=== PATIENT | female | born 1995 | race Caucasian/White ===

== ENCOUNTER → 2016-09-04 | Outpatient (REF) | payer OTHER | LOC: M SFHCLERA 15:49 | PROVIDERS: ATTEND Nurse Practitioner Family | DX: J02.9 Acute pharyngitis, unspecified (principal) ==

== ENCOUNTER → 2017-01-22 | Day surgery (SDC) | payer OTHER ==
[~2017-01-22] VITALS: Ht 152.4 cm; Wt 69.4 kg
[~2017-01-22] MED LIST: BUPIVACAINE HCL 0.25% 30 ML VIAL As Ordered ONE; DRIS50002 PO; FIORCAP3 PO; GLYCOPYRROLATE INJ 0.2 MG/ML 2 ML VIAL As Ordered ONE; HYDROmorphone HCL 1 MG/ML SYRINGE (J1170) IV PRN; KETOROLAC 30 MG/ML VIAL (J1885) IV PRN; KETOROLAC 60 MG/2 ML VIAL (J1885) As Ordered ONE; LIDOCAINE 2% INJ 100 MG/5 ML SDV (FOR ANES.) As Ordered ONE; LR 1,000 ML IV SCH; METHYLENE BLUE 0.5% (5MG/ML) 10 ML AMP (PROVAYBLUE)(Q9968 PER 1MG) As Ordered ONE; METOCLOPRAMIDE INJ 10MG/2ML VIAL (J2765) As Ordered ONE; METOCLOPRAMIDE INJ 10MG/2ML VIAL (J2765) IV PRN; MIDAZOLAM INJ 2 MG/2 ML VIAL (J2250) As Ordered ONE; NEOSTIGMINE 1MG/ML 5 ML SYRINGE (J2710) As Ordered ONE; NEXP1IMP ID; ONDANSETRON 4MG/2ML VIAL (J2405) As Ordered ONE; ONDANSETRON 4MG/2ML VIAL (J2405) IV PRN; PERCOCET 5MG/325MG TAB PO PRN; PROMETHAZINE INJ 25 MG/ML VIAL (J2550) IV PRN; PROPOFOL 200 MG/20 ML VIAL As Ordered ONE; ROCURONIUM BROMIDE 50 MG/5 ML VIAL As Ordered ONE; dexameTHASONE 4 MG/ML 1ML VIAL (J1100) As Ordered ONE; fentaNYL 100 MCG/2 ML INJECTION (J3010) As Ordered ONE; fentaNYL 250 MCG/5 ML INJECTION (J3010) As Ordered ONE
[2017-01-22 11:34] LABS: BASO % 0.2 % (0.0-1.0); EOS # 0.2 K/mm3 (0.0-0.50); EOS % 2.6 % (0.0-3.0); LARGE UNSTAINED CELL # 0.1 K/mm3 (0.0-0.4); LARGE UNSTAINED CELL % 0.7 % (0.0-4.0); LYMPH # 1.5 K/mm3 (1.5-6.5); MEAN CORPUSCULAR HEMOGLOBIN 26.6 pg (27.0-33.0); MEAN CORPUSCULAR HGB CONC 32.4 g/dl (32.0-36.5); MONO # 0.2 K/mm3 (0.0-0.8); MONO % 2.8 % (0.0-5.0); NEUTROPHILS # 6.2 K/mm3 (1.8-7.7); NEUTROPHILS % 75.6 % (36.0-66.0); PLATELET COUNT, AUTOMATED 232 k/mm3 (150-450); RED CELL DISTRIBUTION WIDTH 14.3 % (11.5-14.5); WHITE BLOOD COUNT 8.3 K/mm3 (4.0-10.0)
[2017-01-22 11:49] LABS: CONTROL LINE HCG INT CTR LINE PRESENT
[2017-01-22] MEDS: fentaNYL 100 MCG/2 ML INJECTION (J3010) IV PRN ×4 (14:41→14:56)
[2017-01-22 20:30] VITALS: BP 126/59
--- NOTE | 2017-01-23 09:47 | RO ---
DATE OF PROCEDURE: 01/22/2017 PREPROCEDURE DIAGNOSIS: POSTPROCEDURE DIAGNOSIS: SURGEON: Song Mcnamara MD COMMUNICATION ENGINEER: ANESTHESIA: INDICATION FOR SURGERY: The patient is a 21-year-old, 2, para 2 with desire for Nexplanon removal from left upper extremity, as well as recurrent continued left lower quadrant pain with ultrasound findings consistent with possible dermoid cyst. The risks, benefits, alternatives and indications have previously been reviewed with the patient and informed consent was obtained. DESCRIPTION OF PROCEDURE: The patient was taken to the operating room where general anesthesia was obtained without difficulty. She was then prepped and draped in the normal sterile fashion. A Landaverde catheter was placed. The patient was placed in a low lithotomy position. Prior to the low lithotomy position, the left upper extremity was extended out on a board and the Nexplanon device was palpated at its insertion site. A small 2 to 3 mm incision was made with an 11-blade scalpel and the Nexplanon was grasped with two mosquito clamps and removed without incident. A sterile dressing and Coban tape was applied to the left upper extremity, hemostatic afterwards. Attention was then turned to the patient's vagina, where a sterile speculum was placed in the patient's vagina and the cervix was visualized. A single-toothed tenaculum was used to grasp the anterior lip of the cervix, at which point a Hulka clamp was then placed into the uterus for assistance in uterine manipulation. A single-toothed tenaculum was removed, as well as the speculum device. At this point, after gloves were exchanged, attention was turned to the patient's abdomen where a 5 mm trocar and sleeve were carefully inserted after a 5 mm infraumbilical incision was made. This was done under direct visualization and 90 degree angle while tenting up the abdomen wall. The intraperitoneal placement was confirmed and gas tubing was attached. Pressure at time of entrance was noted to be less than 5 mmHg. Higher flow up to 15 mmHg was performed with insufflation of gas into the abdomen. A 360 degree evaluation, to include the entrance site, was performed and noted no injuries. Multiple adhesions to both colon on the right and left lower aspects, as well as adhesions in the mid colon were noted, as well as multiple Demond-Masters Windows in the posterior cul-de-sac were noted. Slight scarring of the bladder to the anterior uterine wall was noted, as well as scarring along the left adnexa. A large, approximately 5 x 6 cm adnexal mass was appreciated, as well as the right ovary demonstrated approximately 2 to 3 cm functional cyst. Two additional 5 mm trocars, one in the left lower aspect and one in the right lower aspect of the abdomen were placed under direct laparoscopic visualization. One of the 5 mm was replaced with an 11 mm trocar in the right lower quadrant. Harmonic scalpel was used to incise and cut and dissect through the cortex of the left ovary and was able to carefully, with the assistance of Harmonic and [place] grasper, dissect out the intact left ovarian cyst. This was removed intact and placed in an Endo Catch bag through the right trocar. This was brought up to the surface. The trocar was removed and carefully, with the use of an 18-gauge needle, while within the Endo Catch bag, the contents of the cyst were removed and noted slight hair and yellowish fluid, consistent with dermoid cyst. This was removed until the remaining structures of the cyst in the Endo Catch bag were able to be removed through the trocar site. The 11 mm trocar was then replaced into the abdomen and noted hemostasis from the surgical site. The left cortex of the ovary was folded upon itself and 3 grams of Megan was placed laparoscopically without incident. Hemostasis was again noted. Suction irrigation was performed throughout the lower pelvis and no further bleeding was noted. A Castillo-Destiny device was then utilized to close the 11 mm trocar site in routine fashion without complication with the assistance of #0 Vicryl suture. The remaining trocars were then removed under direct visualization. The camera and the gas were then turned off after abdominal desufflation was performed. The skin incisions were then reapproximated with #4-0 Monocryl in a subcuticular fashion and covered with Dermabond. The uterine manipulator was then removed with hemostasis noted with the assistance of two to three silver nitrate sticks. A vaginal sweep was performed and confirmed no remaining foreign objects in the vagina. At completion of the case, sponge, needle and lap counts were correct times two. The patient was taken to the postanesthesia care unit in stable condition.
== END ==
LOC: M SDC 10:56
PROVIDERS: ATTEND Student in an Organized Health Care Education/Training Program
DX: D27.1 Benign neoplasm of left ovary (principal); Z30.49 Encounter for surveillance of other contraceptives; Z91.040 Latex allergy status
CPT/HCPCS: 11982; 36415; 58662; 84703; 85025; 86850; 86900; 86901; 88305; A6024; J1100; J1885; J2250; J2405; J2710; J2765; J3010

== ENCOUNTER → 2020-01-14 | Outpatient (CLI) | payer OTHER ==
[~2020-01-14] MED LIST changes: -BUPIVACAINE HCL 0.25% 30 ML VIAL As Ordered ONE; -DRIS50002 PO; +DRIS50003 PO; -GLYCOPYRROLATE INJ 0.2 MG/ML 2 ML VIAL As Ordered ONE; -HYDROmorphone HCL 1 MG/ML SYRINGE (J1170) IV PRN; -KETOROLAC 30 MG/ML VIAL (J1885) IV PRN; -KETOROLAC 60 MG/2 ML VIAL (J1885) As Ordered ONE; -LIDOCAINE 2% INJ 100 MG/5 ML SDV (FOR ANES.) As Ordered ONE; -LR 1,000 ML IV SCH; -METHYLENE BLUE 0.5% (5MG/ML) 10 ML AMP (PROVAYBLUE)(Q9968 PER 1MG) As Ordered ONE; -METOCLOPRAMIDE INJ 10MG/2ML VIAL (J2765) As Ordered ONE; -METOCLOPRAMIDE INJ 10MG/2ML VIAL (J2765) IV PRN; -MIDAZOLAM INJ 2 MG/2 ML VIAL (J2250) As Ordered ONE; -NEOSTIGMINE 1MG/ML 5 ML SYRINGE (J2710) As Ordered ONE; -ONDANSETRON 4MG/2ML VIAL (J2405) As Ordered ONE; -ONDANSETRON 4MG/2ML VIAL (J2405) IV PRN; -PERCOCET 5MG/325MG TAB PO PRN; -PROMETHAZINE INJ 25 MG/ML VIAL (J2550) IV PRN; -PROPOFOL 200 MG/20 ML VIAL As Ordered ONE; -ROCURONIUM BROMIDE 50 MG/5 ML VIAL As Ordered ONE; -dexameTHASONE 4 MG/ML 1ML VIAL (J1100) As Ordered ONE; -fentaNYL 100 MCG/2 ML INJECTION (J3010) As Ordered ONE; -fentaNYL 250 MCG/5 ML INJECTION (J3010) As Ordered ONE
--- NOTE | 2020-01-14 12:53 | REP ---
RIGHT UPPER QUADRANT ULTRASOUND: Real-time sonographic evaluation of right upper quadrant performed. Gallbladder demonstrates no evidence of intraluminal sludge or calculi, wall thickening, or pericholecystic fluid. There is no intrahepatic or extrahepatic biliary dilatation, common bile duct measuring 4 mm in diameter. Liver and pancreas demonstrate no gross mass. Right kidney demonstrates no hydronephrosis with normal size 10.1 cm in length. IMPRESSION: Essentially negative right upper quadrant ultrasound. Electronically Signed by Isaac Molina MD 01/14/2020 12:59 P
== END ==
LOC: M LRY 10:39
PROVIDERS: ATTEND Physician Assistant
DX: R10.11 Right upper quadrant pain (principal); R10.13 Epigastric pain
CPT/HCPCS: 76705; 81002; 81025; G0463

== ENCOUNTER → 2020-10-19 | Outpatient (CLI) | payer OTHER ==
[~2020-10-19] MED LIST changes: +ALPR0.25 PO; +DESV50TA3 PO; +TOPI50TA9 PO; +VENL37TA PO; +YAZ1TAB PO
== END ==
LOC: M LABSMTC 12:40
PROVIDERS: ATTEND Anesthesiology
DX: Z01.812 Encounter for preprocedural laboratory examination (principal); Z20.822 Contact with and (suspected) exposure to COVID-19

== ENCOUNTER 2020-10-24 09:26 | Day surgery (SDC) | payer OTHER ==
[~2020-10-24] VITALS: Ht 152.4 cm; Wt 82.9 kg
[~2020-10-24 09:26] MED LIST changes: +HEPARIN SOD (PORCINE) 5000UNITS/ML 1ML VIAL/SYRINGE SQ ONE; +LR 1,000 ML IV ONE; +ceFAZolin SOD 2 GM in IV 1 EA IV ONE
[2020-10-24] MEDS ORDERED: fentaNYL 250 MCG/5 ML INJECTION (J3010) As Ordered ONE (09:29)
[2020-10-24] MEDS ORDERED: ROCURONIUM BROMIDE 50 MG/5 ML VIAL As Ordered ONE ×2 (09:29→12:06)
[2020-10-24] MEDS ORDERED: LIDOCAINE 2% 100MG/5ML SDV (FOR ANES.) As Ordered ONE (09:29)
[2020-10-24] MEDS ORDERED: dexameTHASONE 4 MG/ML 1ML VIAL (J1100 PER 1MG) As Ordered ONE (09:29)
[2020-10-24] MEDS ORDERED: MIDAZOLAM INJ 2MG/2ML VIAL (J2250 PER 1MG) As Ordered ONE (09:29)
[2020-10-24] MEDS ORDERED: propofoL 200 MG/20 ML VIAL As Ordered ONE (09:29)
[2020-10-24] MEDS ORDERED: ONDANSETRON 4MG/2ML VIAL As Ordered ONE (09:35)
[2020-10-24 10:01] LABS: HEMATOCRIT 39.2 % (36.0-47.0); HEMOGLOBIN 12.2 g/dl (12.0-15.5); MEAN CORPUSCULAR HEMOGLOBIN 25.4 pg (27.0-33.0); MEAN CORPUSCULAR HGB CONC 31.1 g/dl (32.0-36.5); MEAN CORPUSCULAR VOLUME 81.5 fl (80.0-96.0); PLATELET COUNT, AUTOMATED 293 10^3/uL (150-450); RED BLOOD COUNT 4.81 10^6/uL (4.00-5.40); WHITE BLOOD COUNT 7.4 10^3/uL (4.0-10.0)
[2020-10-24] MEDS ORDERED: BUPIVACAINE LIPOSOME/PF 1.3% 20ML VIAL (13.3MG/ML)(EXPAREL)(C9290 PER1MG) As Ordered ONE (10:40)
[2020-10-24] MEDS ORDERED: SEVOFLURANE INHAL SOLN 250 ML BTL As Ordered ONE (10:55)
[2020-10-24] MEDS ORDERED: SCOPOLAMINE 1MG TRANSDERMAL PATCH As Ordered ONE (11:15)
[2020-10-24] MEDS ORDERED: ACETAMINOPHEN 1000MG 100ML IV BTL (OFIRMEV) (J0131 PER 10MG) As Ordered ONE (11:53)
[2020-10-24] MEDS ORDERED: SUGAMMADEX SODIUM 500 MG/5 ML VIAL (BRIDION) As Ordered ONE (11:57)
[2020-10-24] MEDS ORDERED: HYDROmorphone HCL 2 MG/ML 1ML VIAL (J1170) As Ordered ONE (11:58)
[2020-10-24] MEDS ORDERED: DESFLURANE 240 ML INHALANT As Ordered ONE (12:48)
--- NOTE | 2020-10-24 14:30 | POST-OPPD ---
Postoperative Procedure Note Date Of Procedure: Oct 24, 2020 PREOPERATIVE DIAGNOSIS: Breast hypertrophy POSTOPERATIVE DIAGNOSIS: same FINDINGS: large pendulous breasts PROCEDURE: Bilateral breast reduction. SURGEON: Dr Wilde ANESTHESIA: General SPECIMENS: Right breast 423 gm, Left breast 424 gm ESTIMATED BLOOD LOSS: 50 cc REPLACED: none DRAINS: 10 mm TERENCE x 2 COMPLICATIONS: none POSTOPERATIVE CONDITION: stable COLE WILDE DO Oct 24, 2020 14:30
[2020-10-24] MEDS ORDERED: ACETAMINOPHEN TAB 650MG DOSE (2X325MG) PO PRN (14:45)
[2020-10-24] MEDS ORDERED: KETOROLAC TROMETHAMINE 10 MG TAB PO PRN (14:45)
[2020-10-24] MEDS ORDERED: ONDANSETRON 4MG/2ML VIAL IV PRN ×2 (14:45→15:15)
[2020-10-24] MEDS ORDERED: oxyCODONE 5MG TAB PO PRN (15:15)
[2020-10-24] MEDS ORDERED: fentaNYL 100 MCG/2 ML INJECTION (J3010) IV PRN (15:15)
[2020-10-24] MEDS ORDERED: LR 1,000 ML IV SCH (15:15)
[2020-10-24 15:55] VITALS: BP 126/82
[2020-10-24 16:25] VITALS: BP 127/80
[2020-10-24 17:25] VITALS: BP 124/78
[2020-10-24] MEDS: PERCOCET 5MG/325MG TAB PO PRN ×2 (17:34→21:39)
[2020-10-24] MEDS: ceFAZolin SOD 1 GM in D5W MINI-BAG PLUS 50 ML IV SCH (17:35)
[2020-10-24] MEDS: LR 1,000 ML IV SCH (17:36)
[2020-10-24 18:25] VITALS: BP 118/75
[2020-10-24 22:00] VITALS: BP 134/78
[2020-10-25] MEDS: PERCOCET 5MG/325MG TAB PO PRN ×3 (02:06→13:30)
[2020-10-25] MEDS: ceFAZolin SOD 1 GM in D5W MINI-BAG PLUS 50 ML IV SCH ×2 (02:06→10:39)
[2020-10-25] MEDS: LR 1,000 ML IV SCH (03:52)
[2020-10-25 06:00] VITALS: BP 102/67
--- NOTE | 2020-10-25 11:54 | ROOPDOC ---
[facility] Report Of Operation Report of Operation Date Of Procedure: Oct 24, 2020 PREOPERATIVE DIAGNOSIS: Breast hypertrophy POSTOPERATIVE DIAGNOSIS: same FINDINGS: large pendulous breasts PROCEDURE: Bilateral breast reduction. SURGEON: Dr Wilde ANESTHESIA: General SPECIMENS: Right breast 423 gm, Left breast 424 gm ESTIMATED BLOOD LOSS: 50 cc REPLACED: none DRAINS: 10 mm TERENCE x 2 COMPLICATIONS: none POSTOPERATIVE CONDITION: stable DESCRIPTION OF PROCEDURE: This is a 6-0[age]-old female who upper back and neck pain worsened by large breasts. She wears 36 DDD bra. She is scheduled for bilateral breast reduction. Risks, benefits, and alternatives were discussed with the patient in detail, and she is ready to proceed. The day of surgery, she was marked in the upright position and informed consent was obtained. She measured 32.5 cm on the right 30.5 cm on the left cm from sternal notch to nipple, IMF at 21 cm bilaterally. She was brought into the operating room and placed in the supine position. Preoperative antibiotics and 5000 units heparin subcutaneous were given. Sequential pneumatic stocking were placed on the lower calves. General anesthesia was induced. She was prepped and draped in the usual sterile fashion. We started our procedure on the right side. Her nipple areolar complex was outlined 42 mm in diameter, and the patient was marked according superior medial pedicle. We started our incision by scoring the nipple areolar complex area, and then dissection was continued until the inferior lateral portion of the breast was resected. Hemostasis was obtained using electrocautery. The pedicle was de- epithelialized using Arita scissors, good perfusion to the nipple at all times. Wound was irrigated with Bacitracin solution. We used Exparel 6 cc for local anesthesia to infiltrate in the Pectoralis muscle as well as the breast tissue. Than pedicle was turned superior to its new location at 21 cm from sternal notch. The mound was re-created using conforming 0 Vicryl sutures. Pillars were closed with interrupted 3-0 Monocryl sutures. The vertical limb was 8 cm. Excess tissue inferiorly was measured and resected, creating the horizontal scar. Nipple area complex was brought into view through the new opening and sutured in place with 3-0 and 4-0 Monocryl sutures and a 5-0 plain. A 10 mm Jairon-Brito drain was placed through the lateral portion of the horizontal incision. Then we turned our attention to the left side. Mirror procedure was carried out. Again, resection was done according to superior-medial pedicle using electrocautery and PEEK cautery. Hemostasis was obtained. The pedicle was in good viable condition. Exparel was infiltrated through the pectoralis muscle and the breast tissue 6 cc. Than pedicle was turned superior to its new location at 21 cm from sternal notch. The mound was re-created using conforming 0 Vicryl sutures. Pillars were closed with interrupted 3-0 Monocryl sutures. The vertical limb was cm. Excess tissue inferiorly was measured and resected, creating the horizontal scar. Nipple area complex was brought into view through the new opening and sutured in place with 3-0 and 4-0 Monocryl sutures and a 5-0 plain gut suture in interrupted fashion. A 10 mm Jairon-Brito drain was placed through the lateral portion of the horizontal incision. Remaining Exparel injected in the horizontal incision. Total Exparel use 20 cc. Resected tissue sent to pathology in two specimens right and left breast tissue. Right breast 423 grams, left breast 424 grams. Dressings were applied to vertical and horizontal incision: Prineo. Nipples areolar complex: Xeroform and a bulky dressing with a surgical bra. Patient was extubated in the operating room without difficulty and was transferred to the recovery room in stable condition. COLE WILDE DO Oct 25, 2020 11:54
--- NOTE | 2020-10-25 11:57 | IPNPDOC ---
Subjective General Date Seen: Oct 25, 2020 Subject Chief Complaint/History The patient is a 25-year-old female admitted with a reason for visit of Bilateral Breast Hypertrophy. Status post bilateral breast reduction postop day 1. Patient is doing well, tolerating diet, ambulating, pain controlled with Percocet. Current Medications Current Medications Current Medications Medications (Trade) Dose Ordered Sig/Debbie Route PRN Reason Start Time Stop Time Status Last Admin Dose Admin Acetaminophen (Tylenol Tab) 650 mg Q6H PRN PO MILD PAIN (PS 1-4) 10/24/20 14:45 Cefazolin Sodium 1 gm/Dextrose 50 ml @ 100 mls/hr Q8H IV 10/24/20 18:00 10/25/20 10:39 Fentanyl Citrate (Sublimaze) 25 mcg Q5MP PRN IV PAIN LEVEL 5-10 10/24/20 15:15 10/24/20 16:15 DC Ketorolac Tromethamine (ToRADol) 10 mg Q6HP PRN PO MODERATE PAIN (PS 5-7) 10/24/20 14:45 10/29/20 14:44 10/25/20 06:57 Lactated Ringer's 1,000 ml @ 75 mls/hr [id number] IV 10/24/20 14:32 10/25/20 03:52 Lactated Ringer's 1,000 ml @ 100 mls/hr Q10H IV 10/24/20 15:15 10/24/20 16:15 DC Ondansetron HCl (ZOFRAN INJection) 4 mg Q4H PRN IV NAUSEA OR VOMITING 10/24/20 14:45 Ondansetron HCl (ZOFRAN INJection) 4 mg Q4HP PRN IV NAUSEA OR VOMITING 10/24/20 15:15 10/24/20 16:15 DC Oxycodone HCl (Roxicodone, Oxyir) 5 mg ASDIRECTED PRN PO PAIN LEVEL 1-4 10/24/20 15:15 10/24/20 16:15 DC Oxycodone/ Acetaminophen (Percocet 5mg/ 325mg Tablet) 2 tab Q4HP PRN PO PAIN LEVEL 8-10 10/24/20 14:45 10/25/20 07:56 Allergies Coded Allergies: codeine (Verified Allergy, Intermediate, 10/02/20) Latex, Natural Rubber (Verified Allergy, Mild, rash, 2/1/21) Objective Physical Examination Examination GENERAL APPEARANCE:Patient seen, laying in bed, awake, alert, and oriented. Comfortable, in no acute distress. SKIN: Warm and moist. BREAST: Right and left soft, non-tender incisions intact. TERENCE drains: 10/25 L/R cc/24 hr. NAC: Viable, warm, symmetrical, mild post-op ecchymosis, no expanding hematoma. LUNGS: Clear to auscultation bilaterally. No wheezing appreciated. HEART: No chest wall abnormalities. Regular rate and rhythm with no murmurs appreciated. EXTREMITIES: No edema identified. No calf tenderness. Vital Signs Vital Signs Date Time Temp Pulse Resp B/P (MAP) Pulse Ox O2 Delivery O2 Flow Rate FiO2 10/25/20 08:26 18 Room Air 10/25/20 06:00 98.1 64 102/67 (79) 94 10/24/20 18:25 1.0 I&Os I&O- Last 24 Hours up to 6 AM 10/25/20 05:59 Intake Total 2000 ml Output Total 85 ml Balance 1915 ml Impression Status post bilateral breast reduction. Stable for discharge. Continue with support bra. Monitor drains and document daily output. No heavy lifting. Pain control. F/up plastic surgery. Plan / VTE VTE Prophylaxis Ordered?: Yes COLE WILDE DO Oct 25, 2020 11:57
[2020-10-25] MEDS ORDERED: PERCOCET PO (12:03)
[2020-10-25 14:00] VITALS: BP 105/56
== END 2020-10-25 15:25 | disposition home or self-care (01) ==
LOC: M SDC 09:26 → M MS5PR 15:45 → M SDC 10-25 15:25
PROVIDERS: ATTEND Plastic Surgery Surgery of the Hand
DX: N62 Hypertrophy of breast (principal); F32.9 Major depressive disorder, single episode, unspecified; F41.9 Anxiety disorder, unspecified; F43.10 Post-traumatic stress disorder, unspecified; N80.9 Endometriosis, unspecified; N83.292 Other ovarian cyst, left side; Z79.3 Long term (current) use of hormonal contraceptives; Z79.899 Other long term (current) drug therapy; Z88.5 Allergy status to narcotic agent; Z91.040 Latex allergy status
CPT/HCPCS: 19318; 36415; 81025; 85027; 88305; C9290; J0131; J0690; J1100; J1170; J1644; J2250; J2405; J3010